=== PATIENT | male | born 1990 | race Caucasian/White ===

== ENCOUNTER 2021-01-02 19:51 | Emergency (ER) | payer BC, SELFPAY ==
[2021-01-02 19:53] VITALS: RESP 18; O2SAT 0; BMI 27.1
[2021-01-02 19:56] VITALS: BP 0/0; PULSE 0; RESP 0; TEMP -17.7; TEMP 0
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
== END 2021-01-02 19:57 | disposition left against medical advice (07) ==
PROVIDERS: Emergency Provider Emergency Medicine
DX: Z53.21 Procedure and treatment not carried out due to patient leaving prior to being seen by health care provider (principal); S01.01XA Laceration without foreign body of scalp, initial encounter; V86.59XA Driver of other special all-terrain or other off-road motor vehicle injured in nontraffic accident, initial encounter
CPT/HCPCS: 99281

== ENCOUNTER 2022-08-10 17:00 | Outpatient (RCR) | payer MEDICAID, SELFPAY ==
--- NOTE | 2022-08-10 17:49 | HMH.RHREAS ---
Rehab Reassessment Rehab OP Re-assessment Start: 08/10/22 17:00 Freq: Status: Active Protocol: Document 08/10/22 17:33 TOBY (Rec: 08/10/22 17:48 TOBY [id number]) E-signed By Fabrizio Bruno, PT Rehab Re-assessment Subjective Subjective Patient reports 25% improvement since start of care. Objective Objective Notes AROM: flx 32 deg, ext 14 deg; SBL 32 deg; SBR 31 MMT: WNL R Pain: 2/10 today; 7/10 at worst over past week Neuro: intermittent NT to L5/ S1 Special tests negative. Assessment Progress Assessment Slower Than Expected Assessment Notes Objective improvements as noted above. Patient no longer presents with pelvic malalignment. Patient verbally admitts non- compliance with HEP. Patient refuses mechanical traction. Fear avoidance beliefs noted. Patient would benefit from continuing skilled PT services in order to address functional limitations with all standing/ambulatory, bending and lifting activities . Patient goals met None Goals Not Met All Revised Goals NA Plan Plan Continue with current POC. Frequency of Therapy 2x/week Duration of therapy 4 weeks Time and Billing Re-Eval Time 15 Re-Eval Billing Units 1 PHYSICIAN CERTIFICATION: I certify the specified therapy services for King Tena are required, authorized, and reviewed every 30 days.
== END 2022-08-10 17:05 | disposition home or self-care (01) ==
LOC: PT 17:00
PROVIDERS: PCP Nurse Practitioner Family; Visit Provider Nurse Practitioner Family
DX: M54.50 Low back pain, unspecified (principal); M79.604 Pain in right leg
CPT/HCPCS: 97010; 97012; 97014; 97033; 97110; 97140; 97163; 97164; G0283

== ENCOUNTER → 2022-09-05 15:01 | Outpatient (POV) | payer MEDICAID, SELFPAY ==
[2022-09-05 15:23] VITALS: BP 156/90; PULSE 88; RESP 18; O2SAT 97; BMI 22.4
--- NOTE | 2022-09-05 16:03 | EXP.PAIN.OV ---
HPI Data of Consult Patient: new to practice Consult date: 09/05/22 Requesting Physician: Dina Anderson APRN Consult Narrative Reason for consult: Low back pain, right leg pain History of present illness: Mr. Tena is a 32 year old male who presents today as a new patient. He is a referral from Stephen Dutta's office. Today he rates his pain a 5 out of 10. Patient states the pain is all in his low back that occasionally radiates into his right leg. Patient states his pain is typically around his buttocks area and describes it as a aching, throbbing sensation that is worse with increased activity. Patient states this has been going on since April of this year and states he does not have any specific trauma or injury that coincided with the pain. Patient states he cannot tolerate prolonged standing, walking due to the pain. Patient states that it has affected his ability to perform activities of daily living. Patient has been to physical therapy for approximately 5 weeks with no additional improvement. Patient states he did have an x-ray at [facility] that showed a herniated disc. Patient states that they did submit for an MRI however it was denied by insurance due to not completing 6 weeks of physical therapy. Patient states he has also been seen by chiropractor. Patient states he does typically take ibuprofen to provide some improvement however he states it has decreased in its effectiveness. Patient is also been prescribed prednisone in the past that did help initially but now does not seem to make significant improvement. Patient states that he has also tried ice however this worsened his pain symptoms. Patient denies trying any topical medications. Patient is prescribed Tylenol 3 from his primary care provider. Patient denies any side effects from this medication. His Brandon is [id number]. Its been reviewed and appropriate. CC: Dina Anderson APRN [facility] Disclaimer: The information contained in this section may have been updated after the patient was seen, as this information can be updated by other users. Social History (Updated 09/05/22 @ 15:32 by Margot Gaona RN) Smoking Status: Never smoker alcohol intake: never current occupational status: unemployed Travel in the last 8 weeks: None Review of Systems Review of Systems Review of systems:: pertinent systems reviewed and negative unless documented below Review of systems (narrative): Review of Systems: General: No recent weight changes, no fever, no sleep disturbances Respiratory: No cough, no shortness of air, no recurring pulmonary infections Cardiovascular/peripheral vascular: No chest pain, no palpitations, no edema, no shortness of breath Gastrointestinal: No new onset incontinence, normal bowel movements reported Genitourinary: No new onset incontinence Musculoskeletal: Low back pain, buttocks pain Psychiatric: [Normal mood/affect] Neurological: [Denies weakness in extremities], [denies balance issues] Meds Home Medications and Allergies Home Medications Medication Instructions Recorded Confirmed Type No Known Home Medications 09/05/22 09/05/22 History New Prescriptions to Start Prescriptions: Allergies Allergy/AdvReac Type Severity Reaction Status Date / Time No Known Allergies Allergy Verified 08/17/22 14:38 Objective Vital signs: Pulse Resp BP Pulse Ox 88 18 156/90 H 97 09/05/22 15:23 09/05/22 15:23 09/05/22 15:23 09/05/22 15:23 Narrative: Physical Exam: General: Alert and oriented x3, no acute distress, pleasant and cooperative Lungs: Respirations even and unlabored, symmetrical chest expansion Eyes: PERRL Musculoskeletal: Flexion and extension of lumbar [spine] somewhat guarded secondary to pain, [antalgic gait noted] Neurological: Speech clear, no gross sensory deficit Opioid Risk Tool Opioid Risk Tool-Male Family hx alcohol abuse: No Family hx illegal drugs: No Fami
== END ==
PROVIDERS: Visit Provider Nurse Practitioner Family
DX: M54.50 Low back pain, unspecified (principal); M54.16 Radiculopathy, lumbar region; M79.604 Pain in right leg; M79.18 Myalgia, other site; M53.3 Sacrococcygeal disorders, not elsewhere classified
CPT/HCPCS: 99202; G0463

== ENCOUNTER → 2022-09-11 14:46 | Outpatient (CLI) | payer MEDICAID, SELFPAY ==
--- NOTE | 2022-09-11 14:50 | CT_ITS ---
FINAL REPORT TECHNIQUE: Axial images were performed through the lumbar spine by computed tomography. Sagittal reconstruction images were also performed. This study was performed with techniques to keep radiation doses as low as reasonably achievable, (ALARA). Individualized dose reduction techniques using automated exposure control or adjustment of mA and/or kV according to the patient's size were employed. CLINICAL HISTORY: LBP/BUTTOCK PAIN FINDINGS: No fracture. Normal alignment T12-L1: Unremarkable. L1-L2: Unremarkable. L2-L3: Unremarkable. L3-L4: Mild facet arthropathy without focal disc protrusion. L4-L5: Minimal annular disc bulge without canal stenosis. L5-S1: Moderate annular disc bulge. Mild facet arthropathy. IMPRESSION: Mild degenerative disc disease. Reviewed, Interpreted and Dictated by Krystal Cali MD Transcribed by Krishna Franco Authenticated and [facility]
--- NOTE | 2022-09-11 15:01 | CT_ITS ---
FINAL REPORT CLINICAL HISTORY: PAIN lower back and SI joints FINDINGS: Axial images through the were performed by computed tomography. Sagittal and coronal reconstruction images were performed. This study was performed with techniques to keep radiation doses as low as reasonably achievable (ALARA). Individualized dose reduction techniques using automated exposure control or adjustment of mA and/or kV according to the patient's size were employed. No fracture is identified. No dislocation identified. No significant degenerative changes identified. No soft tissue abnormality. IMPRESSION: No acute process. Reviewed, Interpreted and Dictated by Krystal Clai MD Transcribed by Krishna Franco Authenticated and [facility]
== END ==
PROVIDERS: PCP Family Medicine; Visit Provider Nurse Practitioner Family
DX: M54.50 Low back pain, unspecified (principal); M79.18 Myalgia, other site; M53.3 Sacrococcygeal disorders, not elsewhere classified
CPT/HCPCS: 72131; 72192

== ENCOUNTER → 2022-09-25 10:15 | Outpatient (POV) | payer MEDICAID, SELFPAY ==
[2022-09-25 10:31] VITALS: BP 146/96; PULSE 79; RESP 18; O2SAT 98; BMI 22.4
--- NOTE | 2022-09-25 11:04 | EXP.PAIN.SOA ---
[facility] Pain Management SOAP Note Subjective:: Patient is a pleasant 32-year-old male who presents today for CT results. We are currently treating the patient for low back pain with lumbar radiculopathy symptoms, buttocks pain, coccydynia. Today he rates his pain a 2 out of 10. Patient denies any new trauma or injury. Patient denies any change location or type of pain he experiences. Patient at our prior visit did say this is been going on since April of this year with no specific trauma or injury related to it. Patient does describe this as a aching, throbbing sensation that is worse with increased activity. Patient states he frequently cannot tolerate prolonged standing, walking due to the pain. Patient states he has had physical therapy in the past of approximately 5 weeks however this did not provide additional improvement. Patient does occasionally take ibuprofen with some minimal relief. Patient has been prescribed Tylenol 3 from his primary care doctor in the past. His Brandon is [id number]. Its been reviewed and appropriate. Review of Systems: General: No recent weight changes, no fever, no sleep disturbances Respiratory: No cough, no shortness of air, no recurring pulmonary infections Cardiovascular/peripheral vascular: No chest pain, no palpitations, no edema, no shortness of breath Gastrointestinal: No new onset incontinence, normal bowel movements reported Genitourinary: No new onset incontinence Musculoskeletal: Low back pain, leg/buttocks pain Psychiatric: [Normal mood/affect] Neurological: [Denies weakness in extremities], [denies balance issues] Objective:: Physical Exam: General: Alert and oriented x3, no acute distress, pleasant and cooperative Lungs: Respirations even and unlabored, symmetrical chest expansion Eyes: PERRL Musculoskeletal: Flexion and extension of lumbar [spine] somewhat guarded secondary to pain, [antalgic gait noted] Neurological: Speech clear, no gross sensory deficit ORT score updated with minimal risk CT pelvis without contrast 09-11-2022 Impression: No acute process CT lumbar spine without contrast L3-4: Mild facet arthropathy without focal disc protrusion. L4-L5 minimal annular disc bulge without canal stenosis. L5-S1 moderate annular bulge with mild facet arthropathy. Impression: Mild degenerative disc disease Assessment:: Mild degenerative disc disease of lumbar spine with lumbar radiculopathy symptoms, buttocks pain, coccydynia Plan:: Patient continues to experience significant pain in his low back with radiating symptoms into his buttocks and lower extremities. I have discussed with the patient that he may benefit from a diagnostic lumbar epidural injection at L4-L5 however at this time he would like to wait. Risk and benefits were discussed with the patient and I have counseled him that he can call our office if he decides that he would like to proceed forward with this injection. Patient is not on any blood thinners. I will order the patient a compounding cream at today's visit. Patient will return to clinic in 1 month for reevaluation of symptoms and follow-up. Patient has been instructed to contact the clinic with any concerns before the next appointment. Dr. Pepper has reviewed this note and agrees with this plan of care. This note was dictated using voice recognition software and make contain errors or omissions. [facility] Disclaimer: The information contained in this section may have been updated after the patient was seen, as this information can be updated by other users. Social History (Updated 09/05/22 @ 15:32 by Margot Gaona RN) Smoking Status: Never smoker alcohol intake: never current occupational status: unemployed Travel in the last 8 weeks: None
== END | disposition home or self-care (01) ==
PROVIDERS: Visit Provider Nurse Practitioner Family
DX: M51.16 Intervertebral disc disorders with radiculopathy, lumbar region (principal); M53.3 Sacrococcygeal disorders, not elsewhere classified
CPT/HCPCS: 99212; G0463

== ENCOUNTER → 2022-10-30 12:55 | Outpatient (POV) | payer MEDICAID, SELFPAY ==
--- NOTE | 2022-10-30 13:13 | EXP.PAIN.SOA ---
[facility] Pain Management SOAP Note Subjective:: Patient is a pleasant 32-year-old male who presents today for follow-up. We are currently treating the patient for low back pain with lumbar radiculopathy symptoms, buttocks pain, coccydynia. Today he rates his pain a 0 out of 10. Patient denies any new trauma or injury. Patient denies any change to the location or type of pain he experiences. Patient states he has no pain at this time. Patient has had physical therapy in the past however he stated he did not get significant relief. Patient would previously take an occasional ibuprofen however he states he has not had to do this due to the decreased pain. Patient has been prescribed compounding cream however he did not notice significant improvement the one time he tried it. His Brandon is [id number]. Its been reviewed and appropriate. Review of Systems: General: No recent weight changes, no fever, no sleep disturbances Respiratory: No cough, no shortness of air, no recurring pulmonary infections Cardiovascular/peripheral vascular: No chest pain, no palpitations, no edema, no shortness of breath Gastrointestinal: No new onset incontinence, normal bowel movements reported Genitourinary: No new onset incontinence Musculoskeletal: Low back pain Psychiatric: [Normal mood/affect] Neurological: [Denies weakness in extremities], [denies balance issues] Objective:: Physical Exam: General: Alert and oriented x3, no acute distress, pleasant and cooperative Lungs: Respirations even and unlabored, symmetrical chest expansion Eyes: PERRL Musculoskeletal: Flexion and extension of lumbar [spine] somewhat guarded secondary to pain, [antalgic gait noted] Neurological: Speech clear, no gross sensory deficit Assessment:: Low back pain with lumbar radiculopathy symptoms, buttocks pain, coccydynia Plan:: Patient has had significant improvement of his back pain and does not require any additional therapy at this time. Patient will contact our office for his next follow-up appointment. Patient has been instructed to contact the clinic with any concerns before the next appointment. Dr. Pepper has reviewed this note and agrees with this plan of care. This note was dictated using voice recognition software and make contain errors or omissions. [facility] Disclaimer: The information contained in this section may have been updated after the patient was seen, as this information can be updated by other users. Social History (Updated 09/05/22 @ 15:32 by Margot Gaona RN) Smoking Status: Never smoker alcohol intake: never current occupational status: unemployed Travel in the last 8 weeks: None
[2022-10-30 14:04] VITALS: BP 134/78; PULSE 75; RESP 18; O2SAT 97; BMI 22.4
== END ==
PROVIDERS: Visit Provider Nurse Practitioner Family
DX: M54.16 Radiculopathy, lumbar region (principal); M54.50 Low back pain, unspecified; M53.3 Sacrococcygeal disorders, not elsewhere classified
CPT/HCPCS: 99212; G0463